=== PATIENT | female | born 1945 ===

== ENCOUNTER 2024-11-22 06:28 | Day surgery (SDC) | payer OTHER ==
[~2024-11-22] VITALS: Ht 157.5 cm; Wt 72.6 kg
[~2024-11-22 06:28] MED LIST: AMLODIPINE BESY10 MG; Balanced Salt Epinephrine Irrigation Solution 500 mL IR SCH; Diazepam 5 MG Tab PO PRN; Diazepam 5 MG Tab PO SCH; Lidocaine HCl/Pf 1% 5 ML VIAL XX SCH; Moxifloxacin HCL 0.5 MG/0.1 ML 0.4MLSYR LEFTEYE SCH; OLMESARTAN MEDO20 MG; Ondansetron 4 MG SoluTab MM PRN; PHENYLEPHRINE\\TROPICAMIDE\\TETRACAINE OPHTHALMIC DILATING SOLN LEFTEYE PRN; Povidone-Iodine 450 DROP/30 ML Solution LEFTEYE SCH; Povidone-Iodine 450 DROP/30 ML Solution ONE; Tetracaine HCl/Pf 0.5% Opth Soln 4 ml ONE; Triamcinolone Inj Susp 40 MG / ML 1ML Vial INJ SCH
[2024-11-22] MEDS ORDERED: Diazepam 10 MG Tab ONE (06:37)
[2024-11-22] MEDS ORDERED: Lidocaine HCl/Pf 1% 5 ML VIAL ONE (06:48)
[2024-11-22] MEDS ORDERED: Triamcinolone Inj Susp 40 MG / ML 1ML Vial ONE (06:48)
--- NOTE | 2024-11-22 06:56 | NUR ---
11/22/24 0656 Samia Samuels 0654: 10 MG PO VALIUM GIVEN PER ORDERS. PT REPORTS INITIAL ANXIETY OF 4/10. PULSE OXIMETER IN PLACE TO MONITOR OXYGEN SATURATION AND CALL LIGHT WITHIN REACH.
[2024-11-22] MEDS ORDERED: VITAMIN D310 MC4 (06:57)
[2024-11-22] MEDS ORDERED: GARLIC (06:59)
[2024-11-22] MEDS ORDERED: [UNRECOGNIZED DRUG - OTHER] (06:59)
[2024-11-22] MEDS ORDERED: [UNRECOGNIZED DRUG - OTHER] (07:00)
--- NOTE | 2024-11-22 08:05 | NUR ---
11/22/24 0805 Lakeisha Palacios BP-106/60 P-52 SPO2-100% 2L O2 NASAL CANNULA
--- NOTE | 2024-11-22 08:23 | NUR ---
11/22/[address] AT BEDSIDE
== END 2024-11-22 08:29 | disposition home or self-care (01) ==
LOC: ORSCSDS 06:28
PROVIDERS: Ophthalmology
PROC: 08RK3JZ Replacement of Left Lens with Synthetic Substitute, Percutaneous Approach (ICD-10-PCS; principal; 2024-11-22 08:00)
DX: H25.812 Combined forms of age-related cataract, left eye (principal); Z96.1 Presence of intraocular lens; H18.603 Keratoconus, unspecified, bilateral; Z79.899 Other long term (current) drug therapy
CPT/HCPCS: A9270; J2003; J3301; V2632